=== PATIENT | male | born 1950 | race Caucasian/White ===

== ENCOUNTER 2023-09-25 16:22 | Emergency (ER) | payer MEDICARE, OTHER ==
[2023-09-25] MEDS ORDERED: Ondansetron 4 MG Tab.DIS PO ONE (16:23)
[2023-09-25] MEDS ORDERED: Acetaminophen/oxyCODONE 325-5 MG Tab PO ONE (16:23)
[2023-09-25] MEDS ORDERED: Sodium Chloride 0.9% 10 ML Syringe FLUSH PRN (16:47)
[2023-09-25 17:01] LABS: HEMATOCRIT 45.9 % (38.3-50.1); HEMOGLOBIN 15.4 g/dL (12.9-17.7); MEAN CORPUSCULAR HEMOGLOBIN 30.6 pg (27.0-33.3); MEAN CORPUSCULAR HGB CONC 33.5 g/dL (28.7-35.3); MEAN CORPUSCULAR VOLUME 91.4 fL (80.8-98.7); MEAN PLATELET VOLUME 9.2 fL (6.7-11.0); PLATELET COUNT,PLT 299 x10(3)uL (117-477); RED BLOOD CELL COUNT 5.02 x10(6)uL (3.90-5.90); RED CELL DISTRIBUTION WIDTH 14.1 % (12.4-15.0); WHITE BLOOD CELL COUNT,WBC 19.8 x10-3/uL (3.2-10.1)
[2023-09-25 17:03] LABS: BLOOD UREA NITROGEN,BUN 24 mg/dL (7-18); BUN/CREATININE RATIO 18.5 (9-20); CALCIUM 10.5 mg/dL (8.6-10.2); CARBON DIOXIDE,CO2 26 mmol/L (21-32); CHLORIDE,CL 102 mmol/L (100-110); CREATININE 1.3 mg/dL (0.70-1.30); ESTIMATED GFR 59 mL/min (>60); GLUCOSE RANDOM 109 mg/dL (80-116); POTASSIUM,K 3.8 mmol/L (3.5-5.3); SODIUM,NA 141 mmol/L (135-145)
[2023-09-25 17:06] LABS: BILIRUBIN,URINE NEGATIVE (NEGATIVE); GLUCOSE,URINE NORMAL (NORMAL); KETONES,URINE 50 mg/dL (NEGATIVE); LEUKOCYTE ESTERASE,URINE SMALL (NEGATIVE); NITRITE,URINE NEGATIVE (NEGATIVE); OCCULT BLOOD,URINE LARGE (NEGATIVE); PROTEIN,URINE 30 mg/dL (NEGATIVE); UROBILINOGEN,URINE NORMAL (NEGATIVE)
[2023-09-25 17:09] LABS: ALANINE AMINOTRANSFERASE,ALT 24 U/L (12-36); ALBUMIN 4.4 g/dL (3.2-4.6); ALKALINE PHOSPHATASE 53 IU/L (56-112); AMYLASE 53 U/L (25-115); ASPARTATE AMNIOTRANSFERASE,AST 17 IU/L (5-25); BILIRUBIN TOTAL 1.1 mg/dL (0.1-1.3); PROTEIN TOTAL,TP 8.7 g/dL (6.0-8.0)
[2023-09-25 17:10] LABS: APPEARANCE,URINE SLIGHTLY CLOUDY (CLEAR); BACTERIA,URINE MODERATE (NS); COLOR,URINE YELLOW (YELLOW); SQUAMOUS EPITHELIAL CELLS,UR FEW (NS,R,O)
[2023-09-25 17:17] LABS: EOSINOPHILS PERCENT MAN 2 % (0-5); LYMPHOCYTES PERCENT MAN 25 % (13-37); MONOCYTES PERCENT MAN 7 % (4-12); SEG NEUTROPHILS PERCENT MAN 66 % (46-82)
[2023-09-25] MEDS ORDERED: Naloxone 0.4 MG/ML SDV IVPUSH PRN (17:27)
[2023-09-25] MEDS: Tamsulosin 0.4 MG Cap.ER PO ONE (17:39)
[2023-09-25] MEDS: Morphine 2 MG/ML SYRINGE IVPUSH ONE (17:39)
[2023-09-25] MEDS: Sodium Chloride 0.9% 1,000 ML IV SCH (17:39)
[2023-09-25] MEDS: Ondansetron 4 MG/2 ML SDV IVPUSH ONE (17:40)
[2023-09-25] MEDS: Sulfamethoxazole/Trimethoprim 800-160 MG Tab PO ONE (18:09)
[2023-09-25] MEDS: Acetaminophen/oxyCODONE 325-5 MG Tab PO STA (18:10)
[2023-09-25 18:50] VITALS: BP 168/85; PULSE 84
== END 2023-09-25 18:55 | disposition home or self-care (01) ==
LOC: FB.ED 16:22
DX: N13.2 Hydronephrosis with renal and ureteral calculous obstruction (principal); K21.9 Gastro-esophageal reflux disease without esophagitis; E78.00 Pure hypercholesterolemia, unspecified; F17.210 Nicotine dependence, cigarettes, uncomplicated; Z79.899 Other long term (current) drug therapy
CPT/HCPCS: 74176; 80053; 81001; 82150; 83690; 85025; 96361; 96374; 96375; 99284; A9270; J2270; J2405; J7030; Q0162